=== PATIENT | male | born 1980 | race Caucasian/White ===

== ENCOUNTER 2018-07-03 19:30 | Emergency (ER) | payer MEDICAID ==
[~2018-07-03] VITALS: Ht 165.1 cm; Wt 68.0 kg
[2018-07-03 19:35] VITALS: BP_SYST 137
[2018-07-03] MEDS ORDERED: MORPHINE 2 MG/ML INJ. SYRINGE IVP ONE (20:00)
[2018-07-03] MEDS ORDERED: KETOROLAC TROMETHAMINE 60 MG/2 ML VIAL IM ONE (20:00)
[2018-07-03] MEDS ORDERED: KETAMINE 30 MG/3 ML SYRINGE IVP ONE (20:45)
[2018-07-03] MEDS ORDERED: NACL 0.9% 1,000 ML IV ONE (20:45)
[2018-07-03] MEDS ORDERED: MIDAZOLAM HCL 5 MG/5 ML VIAL IVP ONE (21:15)
[2018-07-03] MEDS ORDERED: KETOROLAC TROMETHAMINE 30 MG VIAL IVP ONE (22:30)
[2018-07-03 23:55] VITALS: BP_SYST 137
== END 2018-07-03 23:55 | disposition home or self-care (01) ==
LOC: SED 19:30
DX: S52.125A Nondisplaced fracture of head of left radius, initial encounter for closed fracture (principal); S42.445A Nondisplaced fracture (avulsion) of medial epicondyle of left humerus, initial encounter for closed fracture; S42.402A Unspecified fracture of lower end of left humerus, initial encounter for closed fracture; W11.XXXA Fall on and from ladder, initial encounter; Y93.89 Activity, other specified; Y92.89 Other specified places as the place of occurrence of the external cause; Y99.8 Other external cause status
CPT/HCPCS: 24565; 24655; 73070; 73080; 96374; 96375; 99152; 99284; J1885; J2250; J2270; J7030